=== PATIENT | female | born 1965 | race Caucasian/White ===

== ENCOUNTER 2024-04-17 05:49 | Observation (INO) ==
--- NOTE | 2024-04-10 13:53 | Anesthesiology Consultation ---
Date of Service April 10, 2024 Assessment & Plan (1) Encounter for pre-operative examination: Chart Review Chart Review: Acceptable Risk for Surgery History Surgery Operation Date: 04/17/24 07:30 Proposed Procedures p Bilateral Breast Reduction with Liposuction of Trunk - Tammy Seymour MD Height/Weight Height: 5 ft 4 in Weight: 83.915 kg Allergies Allergy/AdvReac Type Severity Reaction Status Date / Time fluoxetine [From Prozac] AdvReac Severe Hallucinati Verified 04/07/24 10:17 ons Medications Home Medications Medication Instructions Recorded Confirmed Last Taken citalopram 20 mg tablet (Celexa) 20 mg PO QDL 09/14/23 04/07/24 Unknown famotidine 40 mg tablet 40 mg PO QDL 04/07/24 04/07/24 Unknown oxycodone-acetaminophen 5 mg-325 1 tab PO Q4H PRN pain 3 days #18 04/07/24 04/07/24 Unknown mg tablet (Percocet) tabs Past Medical History Medical History History of anemia related to hysterectomy Depression "mild" Headache HTN (hypertension) No medication - controlled with diet/exercise. 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
--- OUTSIDE RECORDS SUMMARY | 2024-04-17 05:53 | External Medical Summary | Summary of Care ---
Author Name Unknown Organization [facility] Address [address] [facility] [place] [address] Care Team Providers Care Multimedia Assistant Name Role Phone Jaycee Schulte MD Primary Care Provide r Encounter Details Date Type Department Care Team (Late st Contact Info) Description 04/12[facility]2024 [facility] [address] [place] [address] Joaquin Drake MD [address] [place] [address] Allergies Active Allergy Reactions Criticality Noted Date Comments Fluoxetine 07/01/2021 documented as of this encounter (statuses as of 04/12/2024) Medications Medication Sig Dispensed Refills Start Date End Date Status Citalopram Hydrobromide 20 MG Oral Tablet (CeleXA) Take 1 Tablet by mouth in the morning. Active Famotidine 40 MG Oral Tablet (Pepcid) TAKE 1 TABLET BY MOUTH EVERY DAY FOR REFLUX Active Pantoprazole Sodium 40 MG Oral Tablet Delayed Release (Protonix) Take by mouth. 10/08/2023 Ac tive documented as of this encounter (statuses as of 04/12/2024) Active Problems No known active problems documented as of this encounter (statuses as of 04/12/2024) Immunizations Name Administration Dates Next Due PPD 08/23/2023 documented as of this encounter Social History Tobacco Use Types Packs/Day Years Used Date Smoking Tobacco: Former Cigarettes Smokeless Tobacco: Never Alcohol Use Standard Drinks/Week Comments Yes 0 (1 standard drink = 0.6 oz pur e alcohol) occasionally Utilities Answer Date Recorded Do you have trouble paying y our heating, water, or electric bill? (Adult - for ages 18 years and over) Not on file 01/18/2024 Is your family able to pay t he heat, water, or electric bill? (Household - for ages 0-17 years) Not on file 01/18/2024 Does your family have access to good internet? (Household - for ages 0-17 years) Not on file 01/18/2024 Social Connections Answer Date Recorded How often do you feel lonely or isolated from those around you? (Adult - for ages 18 years and over) Not on file 01/18/2024 Sex and Gender Information Value Date Recorded Sex Assigned at Female 10/18/2023 1:19 PM EDT Gender Identity Female 10/18/2023 1:19 PM EDT Sexual Orientation Straight 10/18/2023 1: 19 PM EDT Job Start Date Occupation Industry Not on file Not on file Not on file documented as of this encounter Miscellaneous Notes * Telephone Encounter - Shweta Cano OSA - 04/12/2024 10:27 AM EDT Called to schedule appointment, no answer left message documented in this encounter Plan of Treatment Health Maintenance Due Date Last Done Comments Depression Screening 1978 HIV Screening 1981 Hepatitis C Screening 02/19/1984 DTap/Tdap Vaccines (1 - Tdap) 1985 Hepatitis B Vaccine (1 of 3 - 19+ 3-dose series) 1985 Cologuard 2011 Colonoscopy 2011 Colorectal Cancer Screening 2011 Fecal Occult Blood Test 2011 Sigmoidoscopy 2011 Zoster Vaccines (1 of 2) 02/19/2016 COVID-19 Vaccine (2 - season) 2024 10/18/2020 Influenza Vaccine (FLU shot) (#1) 2024 Mammogram 10/18/2024 10/19/2023, 03/0 08/2023, 10/01/2023, Additional history exists Diabetes Screening 04/07/2025 04/07/2022 Lipid Panel 04/07/2027 04/07/2022 HPV (Gardasil) Vaccine Aged Out No lo nger eligible based on patient's age to complete this topic MENINGOCOCCAL (MENACTRA/MENVEO) Aged Out No longer eligible based on patient's age to complete this topic Pneumococcal Vaccine: Pediatrics (0 to 5 Years) and At-Risk Patients (6 to 64 Years) Aged Out No longer eligible based on patient's age to complete this topic documented as of this encounter Medical Devices Not on filedocumented as of this encounter Care Teams Multimedia Assistant Relationship Specialty Start Date End Date Jaycee Schulte MD PCP - General 11/07/09 documented as of this encounter
[2024-04-17] MEDS: LR 15ML/HR IV SCH (06:38)
--- NOTE | 2024-04-17 06:50 | History & Physical Bridge Note ---
Date of Service April 17, 2024 History & Physical Bridge Note I have examined the patient, reviewed the History & Physical and in the interval since the performance of the History & Physical I have noted the following changes of clinical significance: no changes noted
[2024-04-17] MEDS ORDERED: PROPOFOL IV EMULSION 10 MG/ML 100 ML VIAL IV ONE (06:59)
[2024-04-17] MEDS ORDERED: DEXAMETHASONE SOD INJ 4 MG/ML VIAL ONE (06:59)
[2024-04-17] MEDS ORDERED: LIDOCAINE 2% 2 ML VIAL/AMP(20MG/ML) INFIL ONE (06:59)
[2024-04-17] MEDS ORDERED: PROPOFOL IV EMULSION 10 MG/ML 20 ML VIAL IV ONE ×3 (06:59→10:08)
[2024-04-17] MEDS ORDERED: ONDANSETRON INJ 2 MG/ML 2 ML VIAL ONE (06:59)
[2024-04-17] MEDS ORDERED: ROCURONIUM BROMIDE 10 MG/ML 5 ML VIAL IV ONE ×4 (06:59→13:38)
[2024-04-17] MEDS ORDERED: MIDAZOLAM HCL 1 MG/ML 2ML VIAL ONE (07:02)
[2024-04-17] MEDS ORDERED: fentaNYL citrate PF 100 MCG/2 ML VIAL ONE ×2 (07:02→08:39)
[2024-04-17] MEDS ORDERED: ePHEDrine sulfate 50 MG/ML AMP IV PRN (07:05)
[2024-04-17] MEDS ORDERED: fentaNYL citrate PF 100 MCG/2 ML VIAL IV PRN (07:05)
[2024-04-17] MEDS ORDERED: HYDROmorphone INJ 1 MG/ML SYRINGE IV PRN (07:05)
[2024-04-17] MEDS ORDERED: ONDANSETRON INJ 2 MG/ML 2 ML VIAL IV PRN ×3 (07:05→12:54)
[2024-04-17] MEDS ORDERED: ATROPINE SULFATE 0.1 MG/ML 10ML SYR IV PRN (07:05)
[2024-04-17] MEDS ORDERED: PROMETHAZINE HCL 6.25 MG in SODIUM CHLORIDE 0.9% 50 ML IV PRN (07:05)
[2024-04-17] MEDS ORDERED: ACETAMINOPHEN 1000 MG/100 ML IV IV ONE (07:18)
[2024-04-17] MEDS: SCOPOLAMINE 1 MG/72 HR TDSY PATCH TD ONE ×2 (07:30→14:18)
[2024-04-17] MEDS: TRANEXAMIC ACID 1,000 MG **IV Pre-op IV SCH (07:34)
[2024-04-17] MEDS: ceFAZolin 2000MG 2,000 MG/15 ML SYR IV SCH ×2 (08:00→17:25)
[2024-04-17] MEDS ORDERED: ARTIFICIAL TEARS OP OINT 3.5 GM TUBE ONE (08:05)
[2024-04-17] MEDS: EPINEPHrine INJ 1 MG/ML AMP ONE (08:34)
[2024-04-17] MEDS: LIDOCAINE 1% LOCAL 20 ML VIAL ONE (08:35)
[2024-04-17] MEDS: LIDOCAINE 1%/EPINEPHRINE 1:100,000 50 ML VIAL ONE (10:33)
[2024-04-17] MEDS ORDERED: ePHEDrine sulfate 50 MG/ML AMP ONE (10:38)
[2024-04-17] MEDS: BUPIVACAINE 0.25% PF 30 ML VIAL ONE (10:46)
[2024-04-17] MEDS: TRANEXAMIC ACID 1,000 MG **IV Intra-op IV SCH (10:59)
[2024-04-17] MEDS ORDERED: NEOSTIGMINE METHYLSULFATE 1 MG/ML 10ML VIAL ONE (10:59)
[2024-04-17] MEDS ORDERED: GLYCOPYRROLATE 0.2 MG/ML VIAL ONE (10:59)
[2024-04-17] MEDS ORDERED: HYDROmorphone INJ 2 MG/ML SYR/VIAL ONE (11:23)
--- NOTE | 2024-04-17 11:30 | Post Operative Brief Note ---
PG Immediate Post Op with CF Date of Surgery April 17, 2024 Pre & Post Diagnosis Operation Date: 04/17/24 07:30 Pre-Op Diagnosis: Symptomatic Macromastia, Encounter For Cosmetic Surgery Liposuction Post-Op Diagnosis: Symptomatic Macromastia, Encounter For Cosmetic Surgery Liposuction I identified the patient and participated in the time-out.: Yes Procedure Operation Date: 04/17/24 07:30 Actual Procedures p Bilateral Breast Reduction with Liposuction of Trunk(Bilateral) - Tammy Seymour MD Surgeon Tammy Seymour MD Recovery Operator Parisa Desir MD PGY-6, Irene Griffith PA-C Estimated Blood Loss 25 Findings Consistent with Post-Op Diagnosis Specimens Specimen Description: A: Left Breast (weight 890 Grams) out of room at 0949 B: Right Breast (weight 816 Grams) out of room at 1121 Drains Rodolfo Drain (19 fr) Anesthesia Type General Complications none
--- NOTE | 2024-04-17 12:15 | Operative Report ---
PG Post Operative Report Pre & Post Diagnosis Operation Date: 04/17/24 07:30 Pre-Op Diagnosis: Symptomatic Macromastia, Encounter For Cosmetic Surgery Liposuction Post-Op Diagnosis: Symptomatic Macromastia, Encounter For Cosmetic Surgery Liposuction I identified the patient and participated in the time-out.: Yes Procedure Operation Date: 04/17/24 07:30 Actual Procedures p Bilateral Breast Reduction with Liposuction of Trunk(Bilateral) - Tammy Seymour MD Surgeon Tammy Seymour MD Nurse Monitoring Parisa Desir MD PGY-6, Irene Griffith PA-C Estimated Blood Loss 25 Findings Consistent with Post-Op Diagnosis Specimens right breast 816 grams, left breast 890 grams Drains JENNIFER x2 Anesthesia Type General Complications none Indications back, neck and bilateral shoulder pain secondary to macromastia Description of Procedure The risks, benefits, and alternatives of the procedure were explained to the patient who agreed and signed consent. She was identified and marked in the preoperative holding area. She was brought to the operating room where she was positioned supine and placed under general anesthesia without incident. Surgical site was prepped and draped sterilely. A time-out procedure was performed. I began with the cosmetic portion of the procedure, liposuction of the lateral chest and axilla. 1% lidocaine with epinephrine was used to anesthetize the planned stab incisions, and 3 small stab incisions were placed at the lateral aspect of each breast. A total of 400 cc of tumescent solution per side was used to infiltrate the area of planned liposuction. A 4 mm cannula was selected. Tissue was pre-tunneled until the cannula was easily passed. Suction was applied and the cannula was passed in a fanning method from all 3 access incisions until there was uniform pinch, and bloody aspirate. Excess fluid was expressed from the incision sites and the incisions were closed using 5-0 nylon interrupted suture. Total Lipo aspirate volume was approximately 1000 cc. I then began the breast reduction portion of the procedure, starting with the left side. Markings were reassessed and a 8 cm pedicle was marked. 1% lidocaine with epinephrine was used to anesthetize the planned incisions. A 42 mm cookie cutter was used to circumscribe the nipple-areolar complex. The previously marked 8 cm pedicle was incised using a 15 blade scalpel and deepithelialized. I began with the medial dissection of the pedicle using electrocautery. Cautery was used to incise through dermis and breast parenchyma down to the chest wall, taking care not to undermine the pedicle during dissection. A similar procedure was undertaken on the lateral aspect of the pedicle again taking care not to undermine. Lastly, the pedicle was dissected out superiorly using electrocautery and this was carried down to the chest wall as well. I then began with excision of the medial breast tissue followed by lateral aspect of the breast tissue and surrounding keyhole incision. A 15 blade scalpel was used to make the inframammary fold incision and electrocautery was used to deepen the incision through dermis and breast parenchyma. Dissection was then carried superiorly to the level of the superior incision. Superior incision was then incised using a 15 blade scalpel and again dissected using electrocautery. This was undertaken laterally and then around the keyhole portion of the incision. Care was taken to leave some fat on the lateral pectoralis fascia in order to protect the T4 intercostal nerve. Hemostasis was achieved with electrocautery. The specimen was passed off in its entirety for weighing. Additional resection was undertaken from the superior flap in order to facilitate closure of the breast and to provide the best shape. The total resection weight of the left breast was 890 grams. The wound was irrigated with saline and hemostasis was achieved with electrocautery. 0.25% Marcaine plain was used to anesthetize the incisions as well as the pectoralis fascia. A 15 Nepali Rodolfo drain was brought out through a separate stab incision. The nipple-areolar complex was brought into the keyhole using 2-0 Vicryl deep dermal suture. The wound was closed f irst in a lateral to mid breast direction and then medial to mid breast direction using 2-0 Vicryl deep dermal sutures. Vertical limb was also approximated using 2-0 Vicryl deep dermals and the nipple-areolar complex was inset using 2-0 Vicryl deep dermal sutures. Next, the superficial dermal layer was closed using 2-0 PDO running Quill suture along the inframammary fold and 3- 0 PDS interrupted dermal sutures along the vertical limb and nipple-areolar complex. Lastly 3-0 Monocryl running subcuticular suture was placed. A similar procedure was undertaken on the right side with maximal excision weight of 816 grams. Breasts were symmetric and nipple-areolar complexes were viable bilaterally following wound closure. Dermabond Prineo was applied along the inframammary fold and vertical limb and Dermabond was placed around the nipple- areolar complex. Dry dressings and a surgical bra were placed. The patient was awakened and transferred to recovery room in satisfactory condition. Parisa Desir MD PGY-6 and Irene Griffith PA-C were present and scrubbed throughout the procedure and were instrumental in providing retraction during dissection of the pedicle and assisting in wound closure. I attest to the content of the Intraoperative Record and any orders documented therein. Any exceptions are noted below.
[2024-04-17] MEDS ORDERED: MoRPHine SULFATE 2 MG/ML CARP IV PRN (12:54)
[2024-04-17] MEDS ORDERED: diphenhydrAMINE Capsule 25 MG CAP PO PRN (12:54)
[2024-04-17] MEDS ORDERED: diphenhydrAMINE 50 MG/ML VIAL IV PRN (12:54)
[2024-04-17] MEDS ORDERED: LORazepam 0.5 MG TAB PO PRN (12:54)
[2024-04-17] MEDS ORDERED: MoRPHine SULFATE 4 MG/ML 1 ML CARP\\VIAL IV PRN (12:54)
--- NOTE | 2024-04-17 13:01 | Anesthesiology Progress Note ---
Date of Service April 17, 2024 Anesthesia Post Procedure Vital Signs Vital Signs: Temp Pulse Pulse Resp BP Pulse Ox O2 Del Method 04/17/24 12:40 97.9 F 64 17 123/74 100 Nasal Cannula 04/17/24 12:30 70 17 136/82 97 Nasal Cannula 04/17/24 12:20 65 18 134/83 96 Nasal Cannula 04/17/24 12:10 67 17 127/79 97 Oxymask 04/17/24 12:00 72 21 124/73 91 Oxymask 04/17/24 11:53 97.7 F 71 16 134/79 93 Oxymask 04/17/24 06:24 97.7 F 64 20 159/92 H 95 Room Air O2 Flow Rate 04/17/24 12:40 4 04/17/24 12:30 4 04/17/24 12:20 4 04/17/24 12:10 10 04/17/24 12:00 4 04/17/24 11:53 4 04/17/24 06:24 Pain Intensity Left Posterior Arm: Pain Intensity: 1 Transfer of Care Handoff Completed per policy Notes Mental Status: alert / awake / arousable and participated in evaluation Patient Amnestic to Procedure: Yes Nausea / Vomiting: adequately controlled Pain: adequately controlled Airway Patency, RR, SpO2: stable & adequate BP & HR: stable & adequate Hydration State: stable & adequate Anesthetic Complications: no major complications apparent and Pt Satisfied with anesthetic care
[2024-04-17] MEDS: ACETAMINOPHEN 325 MG TAB PO PRN (13:11)
[2024-04-17] MEDS: D5W AND 1/2NSS + 20MEQ KCL 20 MEQ/1,000 ML BAG IV SCH (14:02)
[2024-04-17] MEDS: CHECK SCOPOLAMINE PATCH PLACEMENT SCH (17:29)
[2024-04-17] MEDS: oxyCODONE/ACETAMINOPHEN 5mg/325mg TAB PO PRN (17:46)
[2024-04-18] MEDS: oxyCODONE/ACETAMINOPHEN 5mg/325mg TAB PO PRN (02:27)
[2024-04-18 07:17] VITALS: BP 131/81; PULSE 82; RESP 16; TEMP 98.4; O2SAT 91
[2024-04-18] MEDS: MULTIVITAMIN TAB PO SCH (08:39)
[2024-04-18] MEDS: FAMOTIDINE 40 MG TABLET PO SCH (08:39)
[2024-04-18] MEDS ORDERED: CITALOPRAM 20 MG TAB PO SCH (11:30)
--- NOTE | 2024-04-18 11:35 | Surgery Progress Note ---
Date of Service April 18, 2024 Assessment & Plan (1) S/P reduction mammoplasty: Plan: Madhavi is doing well. D/C home today, office follow-up tomorrow. Will remove drains tomorrow. Admission and Anticipated Discharge Date Admission Date: April 17, 2024 Subjective Madhavi is one day s/p bilateral breast reduction. She is doing well, pain is controlled. She is tolerating regular diet and ambulating. Physical Exam Physical Exam: nipples were pink, sensate, viable. drains with serosang output, left in place Results & Data Vital Signs (Past 12 Hours) Vital Signs Temp Pulse Resp BP Pulse Ox O2 Del Method 04/18/24 07:16 36.9 C 82 16 131/81 91 Room Air 04/18/24 02:29 36.7 C 87 18 124/80 94 Room Air 04/17/24 23:42 36.8 C 83 18 126/74 93 Room Air PG Care Time/CCT Total # of Minutes Spent Total Time Spent with Patient: Total time spent is greater than 50% in coordination of care (as documented) at patient's floor/unit and/or counseling patient: Coding Level of Care Code 00086 Post Operative Follow-Up Diagnoses S/P reduction mammoplasty Z98.890
--- NOTE | 2024-04-19 14:18 | Discharge Summary ---
Date of Service April 19, 2024 Admission HPI Per Admitting Provider History of symptomatic macromastia. Admission Exam Per Admitting Provider large breasts Principal Diagnosis macromastia Discharge Exam nipples were pink, sensate, viable. drains with serosang output, left in place Discharge Data Allergies Allergy/AdvReac Type Severity Reaction Status Date / Time fluoxetine [From Prozac] AdvReac Severe Hallucinati Verified 04/17/24 06:21 ons Procedures Performed Operation Date: 04/17/24 07:30 Actual Procedures p Bilateral Breast Reduction with Liposuction of Trunk(Bilateral) - Tammy Seymour MD Hospital Course (1) S/P reduction mammoplasty: Patient presented to [facility] with history of symptomatic macromastia. She was taken to the OR and underwent bilateral breast reduction. She also had suction assisted lipectomy of the lateral trunk. There were no intraoperative complications. She was taken to recovery and transferred to med/surg for observation. On POD#1, she was feeling well. She was tolerating a regular diet and ambulating. On exam, her vitals were stable. Her incisions were CDI and nipples viable. Her drains were left in place. She was discharged home with instructions to follow-up in the office in one day. Total Time Total Time Spent Total Time Spent (In Minutes): 10 Discharge Plan Discharge Items Patient Disposition: Home - Self-Care Reason For Visit: Symptomatic Macromastia, Encounter For Cosmetic Patel Discharge Diagnosis: s/p bilateral breast reduction Activity: As commented below Non-emergency contact: Surgeon Call non-emergency contact if: you have any medication questions, your pain is worsening, you have a fever, your wound has increased redness and your wound has increased drainage Follow-up/Referrals: Irene Griffith PA-C [Physician Bulk Plant Agent] - Jaycee Franco M.D. [Primary Care Provider] - Diet: Regular Addtl Attending Provider Instructions: ACTIVITY RECOMMENDATIONS: __Normal activities _x_No bending, lifting or straining __No driving __Driving allowed when you are off pain medications _x_Walking permitted __You should have help at home for ___ days DRESSINGS: __No dressings required _x_Keep dressings dry/in place until first office visit __Remove dressings ___ and leave dressings off __Apply ice ___ days __Remove dressings and reapply garment __Apply antibiotic ointment (Bacitracin, Neosporin, etc) to wounds 3-4 times/day for 10 days BATHING: _x_Keep dressings dry _x_Sponge bathing permitted __Showering permitted _x_No swimming, hot tubs or soaking in a tub MEDICATIONS: Resume previous medications unless instructed otherwise by your surgeon. _x_Do not use aspirin, Motrin, Advil or Ibuprofen as these may promote bleeding. Please use Tylenol. _x_Prescription(s) provided: pain medication was provided at your last office visit OTHER INSTRUCTIONS: x__Record drain output 2-3 times per day SPECIAL CARE INSTRUCTIONS: * It is normal to have a mild fever after surgery. If your temperature is higher than 101.5 degrees F, please call the office at [phone]. * Constipation is a typical side effect of pain medication. An [id number] stool softener will help relieve this. * Leaking around surgical drains may occur and should not cause concern. Sometimes these drains become clogged. If this happens, remove the bulb and milk the clot out of the tube, then replace the bulb. * Drainage from wounds after liposuction is normal and should be expected. Garments will become soiled. You should protect furniture and bedding. This drainage should mostly subside within 2-3 days. Leave garments in place unless instructed to remove them. * If you have unusual drainage from a wound or are concerned you have an infection or have any questions or concerns, please call the office at [phone]. FOLLOW UP VISIT: If not already scheduled, please call the office, , when you return home after surgery to schedule an appointment to be seen in _1__ days. Pending Studies at Discharge: Yes Stand-Alone Forms: [facility] [email or web address], Smoking Cessation Medications and DC Order Prescriptions: Continued citalopram [Celexa] 20 mg tablet 20 mg PO QDL oxycodone-acetaminophen [Percocet] 5-325 mg tablet 1 tab PO Q4H PRN (Reason: pain) 3 Days Qty: 18 0RF Rx Instructions: Initial therapy. famotidine 40 mg Tablet 40 mg PO QDL Discharge Orders: Discharge Order (Routine); Ordered 04/18/24 Ordered By: Irene Mckeon/Other Patient Handouts: Breast Reduction Surgery Admission Data Admit Date/Time: 04/17/24 11:58 Attending Provider: Tammy Seymour Admit Provider: Tammy Seymour Primary Care Provider: Jaycee Franco Other Interventions: Discharge Summary Assessment (RN) Last Done: 04/18/24 11:39 Coding Level of Care Code 39219 OBS Care - Discharge Diagnoses S/P reduction mammoplasty Z98.890
== END 2024-04-18 12:24 | disposition home or self-care (01) ==
LOC: ASU 05:49 → 3E 05:49